=== PATIENT | female | born 1990 | race Caucasian/White ===

== ENCOUNTER 2021-08-01 11:35 | Outpatient (CLI) | payer OTHER, SELFPAY ==
--- NOTE | 2021-08-01 11:51 | XR_ITS ---
WS: [id number] Exam: XR lumbar spine f/e only [id number] Date/Time of Exam: 08/01/2021 11:51 AM Reason For Exam: LUMBAR BACK PAIN No acute fracture or malalignment. No flexion or extension instability. Increased lumbar lordosis not ed. Disc spaces are preserved. Posterior elements are intact as visualized. XR/XR lumbar spine f/e only [id number] IMPRESSION: 1. No flexion or extension instability. Increased lumbar lordosis. No other sig nificant finding.
--- NOTE | 2021-08-01 11:51 | XR_ITS ---
WS: [id number] Exam: XR thoracic spine 2V [id number] Date/Time of Exam: 08/01/2021 11:51 AM Reason For Exam: THORACIC BACK PAIN No fracture or dislocation. Slight levoscoliosis of the lower T-spine. Normal paraspinal soft tissues . XR/XR thoracic spine 2V [id number] IMPRESSION: 1. No fracture or malalignment. 2. Slight levoscoliosis of the lower T-spine.
== END 2021-08-01 11:36 | disposition home or self-care (01) ==
PROVIDERS: PCP Nurse Practitioner Family; Visit Provider Nurse Practitioner Family
DX: M54.6 Pain in thoracic spine (principal); M54.50 Low back pain, unspecified; M41.84 Other forms of scoliosis, thoracic region
CPT/HCPCS: 72070; 72120

== ENCOUNTER 2021-09-25 06:00 | Outpatient (RCR) | payer OTHER, SELFPAY | END 2021-10-11 23:59 | disposition home or self-care (01) | LOC: TPT 06:00 | PROVIDERS: PCP Nurse Practitioner Family; Referring Provider Orthopaedic Surgery; Visit Provider Orthopaedic Surgery | DX: M54.6 Pain in thoracic spine (principal) | CPT/HCPCS: 97032; 97035; 97110; 97140; 97163 ==

== ENCOUNTER 2021-10-12 06:00 | Outpatient (RCR) | payer OTHER, SELFPAY | END 2021-11-10 23:59 | disposition home or self-care (01) | LOC: TPT 06:00 | PROVIDERS: PCP Nurse Practitioner Family; Referring Provider Orthopaedic Surgery; Visit Provider Orthopaedic Surgery | DX: M54.6 Pain in thoracic spine (principal) | CPT/HCPCS: 97032; 97035; 97110; 97140 ==

== ENCOUNTER 2022-02-13 15:39 | Outpatient (CLI) | payer OTHER, SELFPAY ==
--- NOTE | 2022-02-13 16:00 | MR_ITS ---
WS: [id number] MRI THORACIC SPINE noncontrast. HISTORY: M54.6 - Pain in thoracic spine COMPARISON: Thoracic spine radiographs 08/01/2021 TECHNIQUE: Multiplanar sequences are performed in sagittal and axial planes. Normal posterior thoracic alignment. Very mild diffuse disc space narrowing. No fractures or marrow e [place]. Signal within the cord is normal. Conus tapers normally and terminates near the mid L1 level. T1-2: Normal. T2-3: Normal. T3-4: Normal. T4-5: Normal. T5-6: Very tiny central disc protrusion with slight abutment upon the ventral thecal sac. No stenosi s. T6-7: Normal. T7-8: Normal. T8-9: Mild facet arthritis. No stenosis. T9-10: Mild bilateral facet joint arthritis, RIGHT greater than LEFT. No stenosis. T10-11: Very minimal disc bulging and facet arthritis. T11-12: Normal. MR/MR thoracic spin wo con* [id number] IMPRESSION: 1. No significant central or foraminal stenosis. There is mild facet joint art hritis at T8-9 through T10-11. 2. No disc protrusions or stenosis.
== END 2022-02-13 15:40 | disposition home or self-care (01) ==
PROVIDERS: PCP Nurse Practitioner Family; Visit Provider Orthopaedic Surgery
DX: M47.814 Spondylosis without myelopathy or radiculopathy, thoracic region (principal)
CPT/HCPCS: 72146

== ENCOUNTER 2023-11-06 15:59 | Emergency (ER) | payer OTHER, SELFPAY ==
[2023-11-06 16:10] VITALS: BP 119/80; PULSE 93; RESP 17; TEMP 36.7; O2SAT 99; BMI 22.3
--- NOTE | 2023-11-06 16:23 | USR_ITS ---
PROCEDURE INFORMATION: Exam: US Duplex Right Lower Extremity Veins, Limited Exam date and time: 11/06/2023 4:45 PM Age: 33 years old Clinical indication: Leg, lower; Patient HX: Right calf pain per patient. Accidental order of left le. Right le was performed; Additional info: Right-sided calf pain and swelling concern for dvt TECHNIQUE: Imaging protocol: Real-time duplex ultrasound of the right extremity with 2-D alvarado scale, color Doppler flow and spectral waveform analysis including responses to compression and other maneuvers (when performed) with image documentation. Limited exam was focused on the right lower extremity veins. COMPARISON: CT kidney stone [id number] 06/24/2017 5:54 AM FINDINGS: Right deep veins: Unremarkable. The common femoral, femoral, proximal profunda femoral, popliteal, posterior tibial and peroneal veins are patent without thrombus. Normal Doppler waveforms. Normal compressibility and/or augmentation response. Superficial veins: Greater saphenous vein at the saphenofemoral junction is patent without thrombus. Soft tissues: Unremarkable. US/[place] [id number] IMPRESSION: No sonographic evidence of deep vein thrombosis.
--- NOTE | 2023-11-06 16:30 | ED_ITS ---
HPI - Extremity Problem General: Chief complaint: Extremity Injury, Lower Stated complaint: Right leg pain Time Seen by Provider: 11/06/23 16:18 History of Present Illness: Patient presents to the emergency room with right medial calf pain. This been present for couple of days. She feels a swelling there. Its at the top medial part of her calf. May be a small bump is palpated there. She says it is painful. There is no redness or warmth. She has concern for DVT. She has had no chest pain. No shortness of breath. She has Depo control. She does not smoke. She is not overweight. Review of Systems Narrative: Constitutional symptoms: Negative except as documented in HPI. Skin symptoms: Negative except as documented in HPI. Eye symptoms: Negative except as documented in HPI. ENMT symptoms: Negative except as documented in HPI. Respiratory symptoms: Negative except as documented in HPI. Cardiovascular symptoms: Negative except as documented in HPI. Gastrointestinal symptoms: Negative except as documented in HPI. Genitourinary symptoms: Negative except as documented in HPI. Musculoskeletal symptoms: Negative except as documented in HPI. Neurologic symptoms: Negative except as documented in HPI. Psychiatric symptoms: Negative except as documented in HPI. Endocrine symptoms: Negative except as documented in HPI. PFSH ED PFSH: Social History Smoking and tobacco/nicotine status: former use of tobacco/nicotine Second hand smoke exposure: No Alcohol intake: current Alcohol intake frequency: holidays/special occasions only Substance/Drug Use: never Adopted: No Caregiver/support person: No Lives independently: No Household members: children Housing: House Marital status: Legally Number of children: 1 Highest education level completed: Associate Degree: Academic Program service: No Current occupational status: employed Current occupation: phelbotomist Current occupational exposures/hazards: Yes Pets and animals: Yes Sexually active: Yes Do you think of yourself as: Straight/Heterosexual Current gender identity: Female Special farrah needs: No Agree to transfusion: Yes Physical Exam Narrative: EXAM NARRATIVE: General: Alert, no acute distress. Skin: warm and dry, some pain palpation the medial upper right calf. No redness. Head: Normocephalic Neck: Trachea midline Eye: Extraocular movements are intact. Ears, nose, mouth and throat: Oral mucosa moist Respiratory: Respirations are non-labored Musculoskeletal: Normal ROM Neurological: Alert and oriented to person, place, time, and situation, No focal neurological deficit observed. Psychiatric: Cooperative, appropriate mood & affect. Course Vital Signs: Vital signs: Vital Signs Temperature 98.1 F 11/06/23 16:10 Pulse Rate 94 11/06/23 17:03 Respiratory Rate 17 11/06/23 17:03 Blood Pressure 106/71 11/06/23 17:03 Pulse Oximetry 99 11/06/23 17:03 Oxygen Delivery Me thod Room Air 11/06/23 17:03 MDM - Extremity (Nontraumatic) Medical Decision Making Medical decision making: Differential diagnosis including but not limited to and based on the above HPI, review of systems and physical exam: Patient is here to rule out DVT. Venous ultrasound was ordered. Orders placed to evaluate differential diagnosis based on the above differential, HPI and physical exam Venous ultrasound was negative for DVT. I reviewed the patient's medical record. Reexamination: Patient remains stable. No increased work of breathing. No altered mental status. All radiology interpretation(s) finalized by discharge Other Data Assessment and plan: - Discharged home - Discussed plan with patient. Answered any questions. - Evaluation and treatment of this problem were appropriate in the emergency setting. Discharge Plan Discharge Patient Disposition: Home Clinical Impression: Calf pain Condition: Stable Prescriptions: No Action medroxyprogesterone [Depo-Provera] 150 mg/mL syringe IM Discharge Orders: Discharge ED (Routine); Ordered 11/06/23 Ordered By: Sheila Brink Referrals: Gladys Zamora FNP [Primary Care Provider] - (You have been screened and evaluated and felt safe for discharge. Health conditions do change or evolve sometimes and as such it is important that you follow up with your Primary Doctor to be re checked, 3-5 days is a general good time frame for follow up. You are always welcome to return to the ED for re assessment if your symptoms are worsening or you have new concerns) Discharge Diet: Usual diet Discharge Activity: Increase activity as tolerated Patient Instructions: Pain Management Coding Level of Care Code ED Specimen Technician for Terrie De León
[2023-11-06 16:42] VITALS: BP 109/72; PULSE 86; RESP 17; O2SAT 97
[2023-11-06 17:03] VITALS: BP 106/71; PULSE 94; RESP 17; O2SAT 99
[2023-11-06 17:24] VITALS: BP 106/71; PULSE 92; RESP 17; O2SAT 97
== END 2023-11-06 17:29 | disposition home or self-care (01) ==
PROVIDERS: Emergency Provider Emergency Medicine; PCP Nurse Practitioner Family
DX: M79.18 Myalgia, other site (principal); Z87.891 Personal history of nicotine dependence
CPT/HCPCS: 93971; 99284

== ENCOUNTER 2023-11-22 10:32 | Outpatient (CLI) | payer OTHER, SELFPAY ==
--- NOTE | 2023-11-22 10:54 | XRR_ITS ---
PROCEDURE INFORMATION: Exam: XR Cervical Spine Exam date and time: 11/22/2023 11:04 AM Age: 33 years old Clinical indication: Neck pain TECHNIQUE: Imaging protocol: Radiologic exam of the cervical spine. Views: 2 or 3 views. COMPARISON: MR thoracic spin wo con* [id number] 02/13/2022 3:57 PM FINDINGS: Bones/joints: Normal. No acute fracture. Normal alignment. Soft tissues: Unremarkable. XR/XR cervical spine 3V* [id number] IMPRESSION: No acute findings.
== END 2023-11-22 10:33 | disposition home or self-care (01) ==
PROVIDERS: PCP Nurse Practitioner Family; Visit Provider Nurse Practitioner Family
DX: M54.2 Cervicalgia (principal)
CPT/HCPCS: 72040